=== PATIENT | male | born 1960 | race African-American/Black ===

== ENCOUNTER 2017-04-19 16:36 | Emergency (ER) | payer SELFPAY ==
[~2017-04-19] VITALS: Ht 165.1 cm; Wt 91.6 kg
[~2017-04-19 16:36] MED LIST: CLIN150C14 PO; HYDR-971 PO; SULF1TAB24 PO
[2017-04-19 17:48] VITALS: BP 139/81
[2017-04-19] MEDS ORDERED: ACET-704 PO (17:57)
[2017-04-19] MEDS ORDERED: FLUT9.9S NS (17:57)
[2017-04-19] MEDS ORDERED: AMOX1TAB61 PO (17:57)
--- NOTE | 2017-04-19 17:58 | PHYS DOC ---
Past Medical History Past Medical History: Anxiety, Depression, Hypertension Past Surgical History: Other Additional Past Surgical Histo: left rotator cuff repair Alcohol Use: Occasionally Drug Use: None Adult General Chief Complaint Chief Complaint: FACE PAIN HPI HPI Patient is a 56 year old male with history of hypertension anxiety depression diabetes type 2 who presents with a sinus infection. Patient states he has history of seasonal allergies as well. He states he has been congested for week. He states he is taking Ranitidine with no relief. Patient denies any fever. Review of Systems Review of Systems Constitutional: Denies fever or chills [] Eyes: Denies change in visual acuity, redness, or eye pain [] HENT: congestion Respiratory: Denies cough or shortness of breath [] Cardiovascular: No additional information not addressed in HPI [] GI: Denies abdominal pain, nausea, vomiting, bloody stools or diarrhea [] : Denies dysuria or hematuria [] Musculoskeletal: Denies back pain or joint pain [] Integument: Denies rash or skin lesions [] Neurologic: Denies headache, focal weakness or sensory changes [] Endocrine: Denies polyuria or polydipsia [] Allergies Allergies Allergies Coded Allergies Type Severity Reaction Last Updated Verified No Known Drug Allergies 10/14/13 No Physical Exam Physical Exam Constitutional: Well developed, well nourished, no acute distress, non-toxic appearance. [] HENT: Normocephalic, atraumatic, bilateral external ears normal, oropharynx moist, no oral exudates, Bilateral nasal turbinates are boggy and erythematous. Moderate maxillary sinus tenderness. Eyes: PERRLA, EOMI, conjunctiva normal, no discharge. [] Neck: Normal range of motion, no tenderness, supple, no stridor. [] Cardiovascular:Heart rate regular rhythm, no murmur [] Lungs & Thorax: Bilateral breath sounds clear to auscultation [] Abdomen: Bowel sounds normal, soft, no tenderness, no masses, no pulsatile masses. [] Skin: Warm, dry, no erythema, no rash. [] Back: No tenderness, no CVA tenderness. [] Extremities: No tenderness, no cyanosis, no clubbing, ROM intact, no edema. [] Neurologic: Alert and oriented X 3, normal motor function, normal sensory function, no focal deficits noted. [] Psychologic: Affect normal, judgement normal, mood normal. [] EKG EKG [] Radiology/Procedures Radiology/Procedures [] Course & Med Decision Making Course & Med Decision Making Pertinent Labs and Imaging studies reviewed. (See chart for details) Patient has acute sinusitis. Discharged with Augmentin for 10 days, Flonase and Tylenol #3 for pain, ibuprofen also recommended for pain or fever. Follow- up with PCP in 1-2 weeks. Dragon Disclaimer Dragon Disclaimer This electronic medical record was generated, in whole or in part, using a voice recognition dictation system. Departure Departure Impression: Primary Impression: Acute sinusitis Disposition: HOME, SELF-CARE Condition: STABLE Referrals: UNKNOWN PCP NAME (PCP) follow up with your doctor in one week Patient Instructions: Sinusitis Additional Instructions: You were seen for a sinus infection. Take the prescribed medicines as ordered you can also take ibuprofen, it is an anti-inflammatory and will help. Follow- up with your doctor in 1-2 weeks. Scripts Acetaminophen With Codeine (TYLENOL WITH CODEINE #3 TABLET) 1 Each Tablet 1 TAB PO PRN Q6HRS Y for PAIN, #30 TAB Prov: ROJAS BERNSTEIN APRN 04/19/17 Fluticasone Propionate (Flonase Allergy Relief) 9.9 Ml [place].susp 2 SPRAYS NS DAILY, #1 BOTTLE Prov: ROJAS BERNSTEIN APRN 04/19/17 Amoxicillin/Potassium Clav (AUGMENTIN 875-125 TABLET) 1 Each Tablet 1 TAB PO BID, #20 TAB Prov: ROJAS BERNSTEIN APRN 04/19/17 Problem Qualifiers Primary Impression: Acute sinusitis Sinusitis location: maxillary Recurrence: non-recurrent Qualified Codes: J01.00 - Acute maxillary sinusitis, unspecified ROJAS BERNSTEIN APRN Apr 19, 2017 17:58
== END 2017-04-19 18:00 | disposition home or self-care (01) ==
LOC: ER 16:36
DX: J01.90 Acute sinusitis, unspecified (principal); I10 Essential (primary) hypertension; F41.9 Anxiety disorder, unspecified; F32.9 Major depressive disorder, single episode, unspecified; E11.9 Type 2 diabetes mellitus without complications
CPT/HCPCS: 99283

== ENCOUNTER 2019-10-18 19:57 | Emergency (ER) | payer MEDICAID, OTHER ==
[~2019-10-18] VITALS: Ht 165.1 cm; Wt 93.1 kg
[~2019-10-18 19:57] MED LIST changes: +ACET-704 PO; +AMOX1TAB61 PO; +FLUT9.9S NS; +HYDR-3164 PO; -HYDR-971 PO
[2019-10-18 20:29] VITALS: BP 161/82
[2019-10-18] MEDS ORDERED: ONDA4TAB12 PO (21:03)
[2019-10-18] MEDS ORDERED: OSEL75CA PO (21:03)
[2019-10-18] MEDS ORDERED: ALBU2.5V8 IH (21:03)
--- NOTE | 2019-10-18 21:03 | PHYS DOC ---
Past Medical History Past Medical History: Anxiety, Depression, Hypertension (SHRUTHI JONES APRN) Past Surgical History: Other Additional Past Surgical Histo: left rotator cuff repair (SHRUTHI JONES APRN) Alcohol Use: Occasionally Drug Use: None (SHRUTHI JONES APRN) Attending Signature I have participated in the care of this patient and I have reviewed and agree with all pertinent clinical information above including history, exam, and recommendations. (JOSE ANGEL MACHADO MD) Adult General Chief Complaint Chief Complaint: FLU SYMPTOM HPI HPI Patient is a 59 year old male who presents with fever, loss of appetite, body aches, sore throat, runny nose, cough that started on Wednesday. Patient has been able to drink water at home. Patient has been using Tylenol for fever control as well as Mucinex. Complete ROS were reviewed and found to be within normal limits, except as documented in the HPI (SHRUTHI JONES APRN) Allergies Allergies Allergies Coded Allergies Type Severity Reaction Last Updated Verified No Known Drug Allergies 10/14/13 No (JOSE ANGEL MACHADO MD) Physical Exam Physical Exam Constitutional: Well developed, well nourished, no acute distress, non-toxic appearance. [] HENT: Normocephalic, atraumatic, bilateral external ears normal, bilateral tympanic membranes are pearly lerma, oropharynx moist, no oral exudates, nose turbinates are inflamed. Eyes: PERRLA, EOMI, conjunctiva normal, no discharge. [] Neck: Normal range of motion, no tenderness, supple, no stridor. [] Cardiovascular:Heart rate regular rhythm, no murmur [] Lungs & Thorax: Bilateral breath sounds have mild wheezing. Abdomen: Bowel sounds normal, soft, no tenderness, no masses, no pulsatile masses. [] Skin: Warm, dry, no erythema, no rash. [] Neurologic: Alert and oriented X 3, normal motor function, normal sensory function, no focal deficits noted. [] Psychologic: Affect normal, judgement normal, mood normal. [] (SHRUTHI JONES APRN) Current Patient Data Vital Signs Vital Signs Date Time Temp Pulse Resp B/P (MAP) Pulse Ox O2 Delivery O2 Flow Rate FiO2 10/18/19 20:29 98.2 92 22 161/82 (108) 96 Room Air 98.2 (JOSE ANGEL MACHADO MD) EKG EKG [] (SHRUTHI JONES APRN) Radiology/Procedures Radiology/Procedures [] (SHRUTHI JONES APRN) Course & Med Decision Making Course & Med Decision Making Pertinent Labs and Imaging studies reviewed. (See chart for details) The patient appears to have the Flu clinically. Discussed with patient the importance of drinking plenty of fluids. I also discussed the importance of rest. It was discussed with the patient that she is contagious and to stay away from others until it has been a week since the start of her symptoms. Discussed with the patient that she can take Zyrtec per label instructions for runny nose. Also discussed the proper control of fever by rotating Tylenol and Ibuprofen at home. Will also prescribe Zofran for nausea. Will also prescribe Tamiflu. (SHRUTHI JONES APRN) Dragon Disclaimer Dragon Disclaimer This electronic medical record was generated, in whole or in part, using a voice recognition dictation system. (SHRUTHI JONES APRN) Departure Departure Impression: Primary Impression: Viral syndrome Disposition: 01 HOME, SELF-CARE Condition: STABLE Referrals: MARCE REESE JR, MD (PCP) Patient Instructions: Influenza A (H1N1) Additional Instructions: Thank you for visiting [facility]. We appreciate you trusting us with your care. If any additional problems come up don't hesitate to return to visit us. Please follow up with your primary care provider so they can plan additional care if needed and know about the problem that you had. If symptoms worsen come back to the Emergency Department. Any concerning symptoms that start such as chest pain, shortness of air, weakness or numbness on one side of the body, running high fevers or any other concerning symptoms return to the ER. Please fill your medications at any pharmacy and follow the prescription instructions. Please drink plenty of fluids. If unable to keep fluids down please return to ER. Please get Tylenol and Ibuprofen over the counter. Give each medication every 6 hours as directed by the medication labels. In order to utilize the peak of the medications stagger the medications to where the child is getting one of the medications every 3 hours. For example if you give Ibuprofen at 3 PM, you then give Tylenol at 6 PM and Ibuprofen again at 9 PM, and then Tylenol at midnight. Please get Zyrtec over the counter and take per label instructions for runny nose. Scripts Oseltamivir Phosphate (TAMIFLU) 75 Mg Capsule 75 MG PO BID for FLU for 5 Days, #10 TAB 0 Refills Prov: SHRUTHI JONES APRN 10/18/19 Ondansetron (ONDANSETRON ODT) 4 Mg Tab.rapdis 1 TAB PO PRN Q6-8HRS PRN for NAUSEA, #16 TAB Prov: SHRUTHI JONES APRN 10/18/19 Albuterol Sulfate (PROAIR HFA INHALER) 8.5 Gm Hfa.aer.ad 2 PUFF IH PRN Q4-6HRS PRN for wheezing for 21 Days, #1 INHALER 0 Refills Prov: SHRUTHI JONES APRN 10/18/19 SHRUTHI JONES APRN Oct 18, 2019 21:03 JOSE ANGEL MACHADO MD Oct 19, 2019 04:12
== END 2019-10-18 21:17 | disposition home or self-care (01) ==
LOC: ER 19:57
DX: B34.9 Viral infection, unspecified (principal); I10 Essential (primary) hypertension
CPT/HCPCS: 99283